=== PATIENT | female | born 1990 | race Hispanic/Latino ===

== ENCOUNTER 2018-04-09 02:59 | Emergency (ER) | payer OTHER ==
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
[2018-04-09] MEDS ORDERED: cefTRIAXone (Rocephin) 250 mg Inj IM STA (11:02)
[2018-04-09] MEDS ORDERED: Emtricitabine-Tenofovir 200 mg-300 mg Tab PO STA (11:02)
[2018-04-09 14:51] VITALS: BP 111/75; PULSE 89; RESP 16; TEMP 97.7; O2SAT 99
[2018-04-10] MEDS ORDERED: Emtricitabine-Tenofovir 200 mg-300 mg Tab PO NR (11:15)
== END 2018-04-09 14:51 | disposition home or self-care (01) ==
LOC: C.ER 02:59
DX: T76.21XA Adult sexual abuse, suspected, initial encounter (principal); F19.10 Other psychoactive substance abuse, uncomplicated
CPT/HCPCS: 86592; 86703; 86706; 96372; 99285; J0696; J3486